=== PATIENT | male | born 1950 | race Caucasian/White ===

== ENCOUNTER 2016-10-06 07:46 | Day surgery (SDC) | payer MEDICARE ==
[2016-10-06] MEDS ORDERED: LACTATED RINGERS 1,000 ML ONE (08:37)
[2016-10-06] MEDS ORDERED: IV START KIT ONE (08:38)
[2016-10-06] MEDS ORDERED: PROPOFOL 40 ML IV ONE (10:08)
[2016-10-06] MEDS ORDERED: LIDOCAINE 2% (PRES FREE) 5 ML VIAL ONE (10:09)
--- NOTE | 2016-10-13 09:31 | SURGPATH ---
[facility] [address] [place] [id number] Patient Name: JOHN NIETO MR#: [id number] : 1950 Gender: M Specimen #: [id number] Collected: 10/06/2016 Received: 10/12/2016 Reported: 10/13/2016 Submitting Phys: SPRING RIVAS Copy To Phys: OSVALDO PINA [facility] Clinical History / Pre-Operative Diagnosis: Personal history of colon polyps Specimen Source / Surgical Procedure Performed: #1-proximal transverse colon polyp; #2-hepatic flexure colon polyp x2; #3-splenic flexure colon polyp Interpretation: 1. PROXIMAL TRANSVERSE COLON POLYP, POLYPECTOMY: - TUBULAR ADENOMA 2. HEPATIC FLEXURE COLON POLYP X2, POLYPECTOMIES: - TUBULAR ADENOMAS 3. SPLENIC FLEXURE COLON POLYP, POLYPECTOMY: - TUBULAR ADENOMA Electronically Signed Out Angelo Samayoa M.D. Gross Description: #1 The specimen is received in a formalin filled container labeled with the patient's name and "proximal transverse colon polyp". A polypoid madden biopsy is 0.4 x 0.4 x 0.4 cm. Totally embedded in cassette #1. #2 The specimen is received in a formalin filled container labeled with the patient's name and "hepatic flexure colon polyp". Two madden biopsies are 0.3 and 0.5 cm. Totally embedded in cassette #2. #3 The specimen is received in a formalin filled container labeled with the patient's name and "splenic flexure colon polyp". Three madden biopsies are 0.3, 0.4 and 0.5 cm. Totally embedded in cassette #3. Nahun Doe Microscopic Description: 1. The sections show colonic mucosa exhibiting adenomatous change with a tubular architectural pattern. The changes are characterized by nuclear stratification and hyperchromasia with increased mitotic activity. High-grade dysplasia is not identified. 2. The sections show colonic mucosa exhibiting adenomatous change with a tubular architectural pattern. The changes are characterized by nuclear stratification and hyperchromasia with increased mitotic activity. High-grade dysplasia is not identified. 3. The sections show colonic mucosa exhibiting adenomatous change with a tubular architectural pattern. The changes are characterized by nuclear stratification and hyperchromasia with increased mitotic activity. High-grade dysplasia is not identified. 1: 05810 2: 93360 3: 71516 D12.3
== END 2016-10-06 11:49 | disposition home or self-care (01) ==
LOC: SDC 07:46
PROVIDERS: ATTEND Surgery
PROC: 0DBL8ZX Excision of Transverse Colon, Via Natural or Artificial Opening Endoscopic, Diagnostic (ICD-10-PCS; principal; 2016-10-06)
DX: Z12.11 Encounter for screening for malignant neoplasm of colon (principal); D12.3 Benign neoplasm of transverse colon; Z86.010 Personal history of colon polyps; K21.9 Gastro-esophageal reflux disease without esophagitis; G89.29 Other chronic pain; G47.33 Obstructive sleep apnea (adult) (pediatric)
CPT/HCPCS: 45385; J7120